=== PATIENT | female | born 1950 | race Caucasian/White ===

== ENCOUNTER 2017-09-08 08:55 | Day surgery (SDC) | payer OTHER, MEDICAID ==
[~2017-09-08 08:55] MED LIST: TETRACAINE 0.5% OPHTH 1 DOSE AFFEYE ONE; VIGAMOX 0.5% OPHTH 1 DOSE AFFEYE ONE
[2017-09-08] MEDS ORDERED: VIGAMOX 0.5% OPHTH 1 DOSE AFFEYE ONE (08:58)
[2017-09-08] MEDS ORDERED: PROLENSA OPHTH 1 DOSE AFFEYE ONE (08:59)
[2017-09-08] MEDS ORDERED: ALPHAGAN-P OPHTH 1 DOSE AFFEYE ONE (09:00)
[2017-09-08] MEDS ORDERED: MYDRIACIL OPHTH 1 DOSE AFFEYE ONE ×3 (09:01→09:03)
[2017-09-08] MEDS ORDERED: CYCLOGYL 1% OPHTH 1 DOSE OP ONE ×3 (09:01→09:03)
[2017-09-08] MEDS ORDERED: AK-DILATE 2.5% OPHTH 1 DOSE OP ONE ×3 (09:01→09:03)
[2017-09-08] MEDS ORDERED: NS 500 ML IV 500 ML IV ONE (09:30)
[2017-09-08] MEDS ORDERED: TETRACAINE 0.5% OPHTH 1 DOSE AFFEYE ONE ×2 (11:14→11:16)
[2017-09-08] MEDS ORDERED: BETADINE OPHTH SOLN 5% EACHEYE ONE (11:14)
[2017-09-08] MEDS ORDERED: ADRENALINE CHL INJ IJ ONE (11:16)
[2017-09-08] MEDS ORDERED: BSS OPHTH (PLAIN) 500 ML with VANCOMYCIN HCL 500 MG VIAL 25 MG, ADRENALINE CHL INJ 1 MG IR ONE ×3 (11:16)
[2017-09-08] MEDS ORDERED: XYLOCAINE-MPF 1% IJ ONE (11:16)
[2017-09-08] MEDS ORDERED: DUOVISC IO ONE ×2 (11:24→11:29)
[2017-09-08 14:48] VITALS: BP 120/66
[2017-09-08] MEDS ORDERED: DIPRIVAN VIAL ONE (15:51)
== END 2017-09-08 11:55 | disposition home or self-care (01) ==
LOC: SURG1 08:55
PROVIDERS: ATTEND Ophthalmology
PROC: 08RK3JZ Replacement of Left Lens with Synthetic Substitute, Percutaneous Approach (ICD-10-PCS; principal; 2017-09-08 12:45)
PROC: 08DK3ZZ Extraction of Left Lens, Percutaneous Approach (ICD-10-PCS; principal; 2017-09-08 12:45)
DX: H25.12 Age-related nuclear cataract, left eye (principal); H25.012 Cortical age-related cataract, left eye; H52.222 Regular astigmatism, left eye
CPT/HCPCS: A9270; A4217; J0170; J3370; J3490

== ENCOUNTER 2017-11-03 12:54 | Day surgery (SDC) | payer OTHER, MEDICAID ==
[~2017-11-03 12:54] MED LIST changes: +DIPRIVAN VIAL ONE
[2017-11-03] MEDS ORDERED: VIGAMOX 0.5% OPHTH 1 DOSE AFFEYE ONE ×2 (12:55→13:00)
[2017-11-03] MEDS ORDERED: PROLENSA OPHTH 1 DOSE AFFEYE ONE (13:01)
[2017-11-03] MEDS ORDERED: ALPHAGAN-P OPHTH 1 DOSE AFFEYE ONE (13:02)
[2017-11-03] MEDS ORDERED: CYCLOGYL 1% OPHTH 1 DOSE OP ONE ×6 (13:03→13:50)
[2017-11-03] MEDS ORDERED: MYDRIACIL OPHTH 1 DOSE AFFEYE ONE ×7 (13:03→13:50)
[2017-11-03] MEDS ORDERED: NS 500 ML IV 500 ML IV ONE (13:03)
[2017-11-03] MEDS ORDERED: AK-DILATE 2.5% OPHTH 1 DOSE OP ONE ×6 (13:03→13:50)
[2017-11-03] MEDS ORDERED: CYCLOGYL 1% OPHTH 1 DOSE AFFEYE ONE (13:28)
[2017-11-03] MEDS ORDERED: AK-DILATE 2.5% OPHTH 1 DOSE AFFEYE ONE (13:28)
[2017-11-03] MEDS ORDERED: AK-DILATE 10% OPHTH 1 DOSE AFFEYE ONE (13:40)
[2017-11-03] MEDS ORDERED: ADRENALINE CHL INJ IJ ONE (14:42)
[2017-11-03] MEDS ORDERED: BETADINE OPHTH SOLN 5% EACHEYE ONE (14:42)
[2017-11-03] MEDS ORDERED: TETRACAINE 0.5% OPHTH 1 DOSE AFFEYE ONE ×2 (14:42)
[2017-11-03] MEDS ORDERED: DUOVISC IO ONE (14:43)
[2017-11-03] MEDS ORDERED: XYLOCAINE-MPF 1% IJ ONE (14:43)
[2017-11-03] MEDS ORDERED: BSS OPHTH (PLAIN) 500 ML with VANCOMYCIN HCL 500 MG VIAL 25 MG, ADRENALINE CHL INJ 1 MG IR ONE ×3 (14:47)
[2017-11-03] MEDS ORDERED: VIGAMOX 0.5% AFFEYE ONE (15:00)
[2017-11-03 16:31] VITALS: BP 137/69
== END 2017-11-03 15:25 | disposition home or self-care (01) ==
LOC: SURG1 12:54
PROVIDERS: ATTEND Ophthalmology
PROC: 08DJ3ZZ Extraction of Right Lens, Percutaneous Approach (ICD-10-PCS; principal; 2017-11-03 17:45)
PROC: 08RJ3JZ Replacement of Right Lens with Synthetic Substitute, Percutaneous Approach (ICD-10-PCS; principal; 2017-11-03 17:45)
DX: H25.11 Age-related nuclear cataract, right eye (principal); H25.011 Cortical age-related cataract, right eye
CPT/HCPCS: A4217; J0170; J3370; J3490